=== PATIENT | female | born 1955 | race Caucasian/White ===

== ENCOUNTER 2021-08-14 23:57 | Inpatient (IN) | payer MEDICAID ==
[~2021-08-14] VITALS: Ht 167.6 cm; Wt 72.7 kg
[2021-08-15] VITALS (21 sets, daily range): BP systolic 83–120; BP diastolic 40–94
--- NOTE | 2021-08-15 01:42 | NUR ---
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
[2021-08-15] MEDS ORDERED: HYDROmorphone 1 mg/ml syringe IV ONE (01:55)
[2021-08-15] MEDS ORDERED: magnesium hydroxide 30ml (MOM) UD suspension PO PRN (02:10)
[2021-08-15] MEDS ORDERED: magnesium 2GM in 50ml NS 50 ML IV PRN (02:10)
[2021-08-15] MEDS ORDERED: magnesium Cl slow-release 64mg tablet PO PRN (02:10)
[2021-08-15] MEDS ORDERED: potassium Cl 20 mEq SR tablet PO PRN ×2 (02:10)
[2021-08-15] MEDS ORDERED: ondansetron/PF 4mg/2ml inj IV PRN ×2 (02:10→10:30)
[2021-08-15] MEDS ORDERED: potassium CL 10mEq/100ml bag 100 ML IV PRN (02:10)
[2021-08-15] MEDS ORDERED: magnesium 4gm in 100ml NS 100 ML IV PRN (02:10)
[2021-08-15] MEDS ORDERED: acetaminophen 325mg tablet PO PRN (02:10)
--- NOTE | 2021-08-15 02:30 | NUR ---
Dr Dawn at bs
[2021-08-15 02:32] LABS: POTASSIUM 3.7 MMOL/L (3.5-5.1)
[2021-08-15] MEDS: normal saline 1000ml 1,000 ML IV SCH ×4 (02:38→22:48)
--- NOTE | 2021-08-15 02:45 | NUR ---
pt medicated per mar
--- NOTE | 2021-08-15 03:00 | NUR ---
18 F duenas cath inserted with immediate return of 250 cc cloudy, marla urine, pt simon proc well.
--- NOTE | 2021-08-15 03:23 | NUR ---
Report called to RN on surgical floor.
--- NOTE | 2021-08-15 03:24 | NUR ---
pt going to rm # [id number].
[2021-08-15] MEDS: HYDROmorphone inj. 0.5 MG/0.5 ML DISP.SYRIN IV PRN ×6 (03:48→22:46)
--- NOTE | 2021-08-15 04:25 | NUR ---
RECEIVED PT FROM ER AAO TIMES 4 COMPLANING OF LEFT LOWER EXTREMITY PAIN. PT IS ADMITTED FOR LEFT FEMORAL NECK FRACTURE. VITAL SIGNS STABLE. PAIN MED ADMINISTERED WITH GOOD EFEECT,
--- NOTE | 2021-08-15 06:25 | NUR ---
Problems reprioritized. Patient report given, questions answered & plan of care reviewed with JEFFREY URBANO.
[2021-08-15] MEDS: docusate sod 100mg capsule PO SCH ×2 (08:00→19:20)
[2021-08-15] MEDS ORDERED: FAMOTIDINE IV SCH (08:00)
[2021-08-15] MEDS: K and/or MAG REPLACEMENT MC SCH ×2 (08:00→19:12)
[2021-08-15] MEDS ORDERED: NORMAL SALINE IV SCH (08:00)
[2021-08-15 08:40] LABS: BASOPHILS % (AUTO) 0.3 % (0-1); EOSINOPHILS % (AUTO) 0.5 % (0-6); HEMATOCRIT 31.4 % (35.0-45.0); HEMOGLOBIN 10.7 g/dl (12.0-16.0); LYMPHOCYTES # (AUTO) 0.5 X10'3 (1.1-4.8); LYMPHOCYTES % (AUTO) 8.8 % (21-51); MEAN CORPUSCULAR HEMOGLOBIN 30.4 PG (27.0-31.0); MEAN CORPUSCULAR VOLUME 89.2 FL (78-98); MEAN PLATELET VOLUME 6.5 FL (7.4-10.4); MONOCYTES # (AUTO) 0.7 X10'3 (0-0.9); MONOCYTES % (AUTO) 13.1 % (2-12); NEUTROPHILS # (AUTO) 4.3 X10'3 (1.8-7.7); NEUTROPHILS % (AUTO) 77.3 % (42-75); PLATELET COUNT 205 X10'3 (140-440); RED BLOOD COUNT 3.51 X10'6 (4.20-5.60); RED CELL DISTRIBUTION WIDTH 14.1 % (11.5-14.5); WHITE BLOOD COUNT 5.6 X10'3 (4.5-11.0)
[2021-08-15 08:50] LABS: APTT 26 SECONDS (22-32)
[2021-08-15 10:01] LABS: ALANINE AMINOTRANSFERASE 18 U/L (12-78); ALBUMIN 2.7 G/DL (3.4-5.0); ALBUMIN/GLOBULIN RATIO 0.7 (1.1-1.5); ALKALINE PHOSPHATASE 97 IU/L (46-116); ANION GAP 3 (8-16); ASPARTATE AMINO TRANSFERASE 30 U/L (10-37); BILIRUBIN,TOTAL 0.4 MG/DL (0.1-1.0); BLOOD UREA NITROGEN 22 MG/DL (7-18); BUN/CREATININE RATIO 46.8 (6.6-38.0); CALCIUM 8.2 MG/DL (8.5-10.1); CHLORIDE 109 MMOL/L (99-107); CREATININE 0.47 MG/DL (0.40-0.90); GLUCOSE 99 MG/DL (70-104); POTASSIUM 3.6 MMOL/L (3.5-5.1); SODIUM 143 MMOL/L (135-145); TOTAL CARBON DIOXIDE 30.8 MMOL/L (24-32); TOTAL PROTEIN 6.5 G/DL (6.4-8.2); eGFR > 90 ML/MIN
[2021-08-15] MEDS: famotidine/PF 10 mg/ml inj IV SCH ×2 (10:10→20:29)
--- NOTE | 2021-08-15 10:20 | NUR ---
PAGER ID: [phone] MESSAGE: [phone]. Can we get other pain med orders, patient only has dilaudid. Lena URBANO [phone]
[2021-08-15] MEDS ORDERED: morphine 4 MG/ML inj SYRINge IV PRN (10:30)
[2021-08-15] MEDS ORDERED: fentaNYL/PF 50MCG/1 ML 2ML syringe IV PRN ×2 (10:30)
[2021-08-15] MEDS ORDERED: ringers solution, lacted 1,000 ML IV SCH (10:30)
[2021-08-15] MEDS ORDERED: hydrALAZINE 20mg/ml inj. IV PRN (10:30)
[2021-08-15] MEDS ORDERED: morphine 2 MG/ML inj. syringe IV PRN (10:30)
[2021-08-15] MEDS ORDERED: labetalol 20mg/4ml (5mg/ml) syringe IV PRN (10:30)
[2021-08-15] MEDS: HYDROcodone/acetaminophen 5mg/325mg tablet PO PRN ×2 (10:46→17:47)
[2021-08-15] MEDS ORDERED: NICO-687 TOP (11:05)
[2021-08-15] MEDS ORDERED: DEXA4TAB79 PO (11:05)
[2021-08-15] MEDS ORDERED: PANT40TA54 PO (11:05)
[2021-08-15] MEDS ORDERED: MIDAZolam 1 MG/ML 5ML VIAL ONE (13:15)
[2021-08-15] MEDS ORDERED: FENTANYL CITRATE/PF 50 MCG/1 ML VIAL ONE (13:15)
[2021-08-15] MEDS ORDERED: tetracaine 1% (10mg/ml) pres. free inj. ONE (13:21)
[2021-08-15] MEDS ORDERED: ceFAZolin 1000mg inj ONE ×2 (13:29)
[2021-08-15] MEDS ORDERED: ePHEDrine 50MG/ML INJ. ONE (13:29)
[2021-08-15] MEDS ORDERED: ROPIVAcaine 0.5% (5mg/ml) 30ml vial ONE (14:16)
[2021-08-15] MEDS ORDERED: cloNIDine hcl/PF 100mcg/ml inj ONE (14:16)
[2021-08-15] MEDS ORDERED: ketorolac trometh. 30mg/ml inj. ONE (14:16)
[2021-08-15] MEDS ORDERED: epiNEPHrine 1 mg/ml inj ONE (14:16)
[2021-08-15] MEDS ORDERED: vancomycin 1,000mg inj ONE (14:17)
--- NOTE | 2021-08-15 14:54 | NUR ---
Received from OR via , accompanied by Anesthesiologist DR MELGAR and report given by Anesthesiolgist. AWAKENS TO STIIMULATION. VITALS STABLE. DRESSING DI. RADHA PAIN. SENSATION JUST ABOVE THE HIPS. GREEN WITH CLEAR URINE.
--- NOTE | 2021-08-15 16:04 | NUR ---
Report called to receiving nurse. Transferred via [facility] . Special Issues communicated to receiving nurse.AWAKE AND ORIENTED. VITALS STABLE. DRESSING DI. RADHA PAIN. TO SURGICAL RM 353 AT THIS TIME.
--- NOTE | 2021-08-15 17:38 | NUR ---
Patient complains of pain. Ice packs placed on left hip, prn pain medication given.
--- NOTE | 2021-08-15 18:28 | NUR ---
Patient in room [facility]. I have received report from Lena URBANO and had the opportunity to ask questions and assume patient care.
--- NOTE | 2021-08-15 18:43 | NUR ---
Problems reprioritized. Patient report given, questions answered & plan of care reviewed with Katelynn URBANO.
[2021-08-15] MEDS: enoxaparin 40mg/0.4ml syringe SUBCUT SCH (19:22)
[2021-08-16] VITALS (7 sets, daily range): BP systolic 90–103; BP diastolic 36–54
[2021-08-16] MEDS: HYDROmorphone inj. 0.5 MG/0.5 ML DISP.SYRIN IV PRN ×2 (01:54→05:29)
[2021-08-16] MEDS ORDERED: ringers solution, lacted 1,000 ML IV SCH (05:00)
--- NOTE | 2021-08-16 06:15 | NUR ---
Problems reprioritized. Patient report given, questions answered & plan of care reviewed with Shannan URBANO.
[2021-08-16 06:22] LABS: BASOPHILS % (AUTO) 0.3 % (0-1); EOSINOPHILS % (AUTO) 0.8 % (0-6); HEMATOCRIT 25.8 % (35.0-45.0); HEMOGLOBIN 8.8 g/dl (12.0-16.0); LYMPHOCYTES # (AUTO) 0.5 X10'3 (1.1-4.8); LYMPHOCYTES % (AUTO) 8.9 % (21-51); MEAN CORPUSCULAR HEMOGLOBIN 30.2 PG (27.0-31.0); MEAN CORPUSCULAR HGB CONC 34.1 g/dL (33.0-36.5); MEAN CORPUSCULAR VOLUME 88.7 FL (78-98); MEAN PLATELET VOLUME 6.9 FL (7.4-10.4); MONOCYTES # (AUTO) 0.6 X10'3 (0-0.9); MONOCYTES % (AUTO) 11.6 % (2-12); NEUTROPHILS # (AUTO) 4.3 X10'3 (1.8-7.7); NEUTROPHILS % (AUTO) 78.4 % (42-75); PLATELET COUNT 164 X10'3 (140-440); RED BLOOD COUNT 2.91 X10'6 (4.20-5.60); RED CELL DISTRIBUTION WIDTH 13.7 % (11.5-14.5); WHITE BLOOD COUNT 5.5 X10'3 (4.5-11.0)
[2021-08-16 06:37] LABS: ALANINE AMINOTRANSFERASE 18 U/L (12-78); ALBUMIN 2.2 G/DL (3.4-5.0); ALBUMIN/GLOBULIN RATIO 0.7 (1.1-1.5); ALKALINE PHOSPHATASE 83 IU/L (46-116); ANION GAP 11 (8-16); ASPARTATE AMINO TRANSFERASE 29 U/L (10-37); BILIRUBIN,TOTAL 0.4 MG/DL (0.1-1.0); BLOOD UREA NITROGEN 16 MG/DL (7-18); BUN/CREATININE RATIO 28.6 (6.6-38.0); CALCIUM 7.9 MG/DL (8.5-10.1); CHLORIDE 106 MMOL/L (99-107); CREATININE 0.56 MG/DL (0.40-0.90); GLUCOSE 99 MG/DL (70-104); POTASSIUM 3.6 MMOL/L (3.5-5.1); SODIUM 143 MMOL/L (135-145); TOTAL CARBON DIOXIDE 26.5 MMOL/L (24-32); TOTAL PROTEIN 5.5 G/DL (6.4-8.2); eGFR > 90 ML/MIN
[2021-08-16] MEDS: docusate sod 100mg capsule PO SCH ×2 (08:00→19:54)
[2021-08-16] MEDS ORDERED: heparin, porcine 5000 units/ml vial SQ SCH (08:00)
[2021-08-16] MEDS: famotidine/PF 10 mg/ml inj IV SCH (08:00)
[2021-08-16] MEDS: K and/or MAG REPLACEMENT MC SCH ×2 (08:00→18:45)
[2021-08-16] MEDS: ceFAZolin 2gm in dextrose, iso 50 ML IV SCH ×2 (08:04→15:19)
[2021-08-16] MEDS: normal saline 1000ml 1,000 ML IV SCH (08:06)
[2021-08-16] MEDS ORDERED: HYDROmorphone inj. 0.5 MG/0.5 ML DISP.SYRIN IV PRN (08:40)
[2021-08-16] MEDS ORDERED: HYDROmorphone 1 mg/ml syringe IV ONE (08:40)
[2021-08-16] MEDS ORDERED: cefazolin/dext.iso 2gm/100ml 100 ML IV SCH (16:00)
--- NOTE | 2021-08-16 18:26 | NUR ---
Problems reprioritized. Patient report given, questions answered & plan of care reviewed with SUNDEEP Pace.
--- NOTE | 2021-08-16 18:39 | NUR ---
Patient in room [facility]. I have received report from Shannan URBANO and had the opportunity to ask questions and assume patient care.
[2021-08-16] MEDS: famotidine 20mg tablet PO SCH (19:53)
[2021-08-16] MEDS: enoxaparin 40mg/0.4ml syringe SUBCUT SCH (19:58)
[2021-08-16] MEDS: HYDROcodone/acetaminophen 5mg/325mg tablet PO PRN (21:58)
[2021-08-17] VITALS: BP 91/45
[2021-08-17] MEDS: HYDROcodone/acetaminophen 5mg/325mg tablet PO PRN ×4 (05:10→20:07)
--- NOTE | 2021-08-17 06:20 | NUR ---
Problems reprioritized. Patient report given, questions answered & plan of care reviewed with Inge URBANO.
--- NOTE | 2021-08-17 06:22 | NUR ---
Patient in room [facility]. I have received report from LARA URBANO and had the opportunity to ask questions and assume patient care.
[2021-08-17 06:40] LABS: BASOPHILS % (AUTO) 0.3 % (0-1); EOSINOPHILS % (AUTO) 0.8 % (0-6); HEMATOCRIT 26.1 % (35.0-45.0); HEMOGLOBIN 8.9 g/dl (12.0-16.0); LYMPHOCYTES # (AUTO) 0.5 X10'3 (1.1-4.8); LYMPHOCYTES % (AUTO) 7.9 % (21-51); MEAN CORPUSCULAR HEMOGLOBIN 30.2 PG (27.0-31.0); MEAN CORPUSCULAR HGB CONC 34.3 g/dL (33.0-36.5); MEAN PLATELET VOLUME 6.9 FL (7.4-10.4); MONOCYTES # (AUTO) 0.9 X10'3 (0-0.9); MONOCYTES % (AUTO) 14.9 % (2-12); NEUTROPHILS # (AUTO) 4.4 X10'3 (1.8-7.7); NEUTROPHILS % (AUTO) 76.1 % (42-75); PLATELET COUNT 165 X10'3 (140-440); RED BLOOD COUNT 2.96 X10'6 (4.20-5.60); RED CELL DISTRIBUTION WIDTH 13.8 % (11.5-14.5); WHITE BLOOD COUNT 5.8 X10'3 (4.5-11.0)
[2021-08-17 07:03] LABS: ALANINE AMINOTRANSFERASE 20 U/L (12-78); ALBUMIN/GLOBULIN RATIO 0.5 (1.1-1.5); ALKALINE PHOSPHATASE 105 IU/L (46-116); ANION GAP 11 (8-16); ASPARTATE AMINO TRANSFERASE 30 U/L (10-37); BILIRUBIN,TOTAL 0.5 MG/DL (0.1-1.0); BLOOD UREA NITROGEN 15 MG/DL (7-18); BUN/CREATININE RATIO 29.4 (6.6-38.0); CALCIUM 8.2 MG/DL (8.5-10.1); CHLORIDE 105 MMOL/L (99-107); CREATININE 0.51 MG/DL (0.40-0.90); GLUCOSE 104 MG/DL (70-104); POTASSIUM 3.6 MMOL/L (3.5-5.1); SODIUM 141 MMOL/L (135-145); TOTAL CARBON DIOXIDE 24.8 MMOL/L (24-32); TOTAL PROTEIN 5.9 G/DL (6.4-8.2); eGFR > 90 ML/MIN
[2021-08-17] MEDS: K and/or MAG REPLACEMENT MC SCH ×2 (08:00→19:35)
[2021-08-17 08:02] VITALS: BP_SYST 100; BP_SYST 103; BP_DIAS 35; BP_DIAS 40
[2021-08-17] MEDS: docusate sod 100mg capsule PO SCH ×2 (09:41→21:41)
[2021-08-17] MEDS: famotidine 20mg tablet PO SCH ×2 (09:41→20:06)
[2021-08-17] MEDS: normal saline 500ml IV soln 500 ML IV SCH ×2 (11:48→13:35)
[2021-08-17 12:00] VITALS: BP 92/56
--- NOTE | 2021-08-17 12:42 | NUR ---
patient up in chair assisted by PT. Seen by Verenice Bang PRODUCT DEVELOPMENT INTERN, bolused 500mls nacl. DRessing intact . will continue to monitor
[2021-08-17] MEDS ORDERED: nicotine 21mg patch - 24 hr TD ONE (13:25)
--- NOTE | 2021-08-17 18:12 | NUR ---
Problems reprioritized. Patient report given, questions answered & plan of care reviewed with Joana URBANO.
[2021-08-17 20:00] VITALS: BP 140/43
[2021-08-17] MEDS: dexamethasone 4mg tablet PO SCH (20:05)
[2021-08-17] MEDS: enoxaparin 40mg/0.4ml syringe SUBCUT SCH (20:08)
[2021-08-18] VITALS: BP 94/50
[2021-08-18] MEDS: HYDROcodone/acetaminophen 5mg/325mg tablet PO PRN ×3 (03:33→19:57)
--- NOTE | 2021-08-18 06:15 | NUR ---
Patient in room [facility]. I have received report from Joana URBANO traveler and had the opportunity to ask questions and assume patient care.
[2021-08-18 06:37] LABS: BASOPHILS % (AUTO) 0.1 % (0-1); EOSINOPHILS % (AUTO) 0.1 % (0-6); HEMATOCRIT 26.3 % (35.0-45.0); HEMOGLOBIN 8.9 g/dl (12.0-16.0); LYMPHOCYTES # (AUTO) 0.4 X10'3 (1.1-4.8); LYMPHOCYTES % (AUTO) 5.6 % (21-51); MEAN CORPUSCULAR HEMOGLOBIN 30.3 PG (27.0-31.0); MEAN CORPUSCULAR VOLUME 89.1 FL (78-98); MONOCYTES # (AUTO) 0.4 X10'3 (0-0.9); MONOCYTES % (AUTO) 5.9 % (2-12); NEUTROPHILS # (AUTO) 5.6 X10'3 (1.8-7.7); NEUTROPHILS % (AUTO) 88.3 % (42-75); PLATELET COUNT 183 X10'3 (140-440); RED BLOOD COUNT 2.95 X10'6 (4.20-5.60); RED CELL DISTRIBUTION WIDTH 13.8 % (11.5-14.5); WHITE BLOOD COUNT 6.3 X10'3 (4.5-11.0)
[2021-08-18 06:54] LABS: ALANINE AMINOTRANSFERASE 23 U/L (12-78); ALBUMIN/GLOBULIN RATIO 0.5 (1.1-1.5); ALKALINE PHOSPHATASE 118 IU/L (46-116); ANION GAP 12 (8-16); ASPARTATE AMINO TRANSFERASE 28 U/L (10-37); BILIRUBIN,TOTAL 0.3 MG/DL (0.1-1.0); BLOOD UREA NITROGEN 12 MG/DL (7-18); BUN/CREATININE RATIO 24.5 (6.6-38.0); CALCIUM 8.4 MG/DL (8.5-10.1); CHLORIDE 105 MMOL/L (99-107); CREATININE 0.49 MG/DL (0.40-0.90); GLUCOSE 142 MG/DL (70-104); POTASSIUM 4.1 MMOL/L (3.5-5.1); SODIUM 142 MMOL/L (135-145); TOTAL CARBON DIOXIDE 25.3 MMOL/L (24-32); TOTAL PROTEIN 6.2 G/DL (6.4-8.2); eGFR > 90 ML/MIN
[2021-08-18] MEDS: docusate sod 100mg capsule PO SCH ×2 (07:33→19:56)
[2021-08-18] MEDS: pantoprazole 40mg Tablet.DR PO SCH (07:33)
[2021-08-18] MEDS: dexamethasone 4mg tablet PO SCH ×2 (07:33→19:56)
[2021-08-18 08:00] VITALS: BP 100/51
[2021-08-18] MEDS: famotidine 20mg tablet PO SCH ×2 (08:00→19:56)
[2021-08-18] MEDS: nicotine 21mg patch - 24 hr TD SCH (08:00)
[2021-08-18] MEDS: K and/or MAG REPLACEMENT MC SCH ×2 (08:00→19:44)
[2021-08-18 12:00] VITALS: BP 96/43
--- NOTE | 2021-08-18 18:26 | NUR ---
Problems reprioritized. Patient report given, questions answered & plan of care reviewed with mikel URBANO traveler.
[2021-08-18] MEDS: enoxaparin 40mg/0.4ml syringe SUBCUT SCH (19:58)
[2021-08-18 20:00] VITALS: BP 103/42
[2021-08-19] VITALS: BP 103/50
[2021-08-19] MEDS: HYDROcodone/acetaminophen 5mg/325mg tablet PO PRN (05:48)
[2021-08-19 06:52] LABS: BASOPHILS % (AUTO) 0 % (0-1); EOSINOPHILS % (AUTO) 0.1 % (0-6); HEMATOCRIT 25.6 % (35.0-45.0); HEMOGLOBIN 8.8 g/dl (12.0-16.0); LYMPHOCYTES # (AUTO) 0.4 X10'3 (1.1-4.8); LYMPHOCYTES % (AUTO) 6.1 % (21-51); MEAN CORPUSCULAR HEMOGLOBIN 30.4 PG (27.0-31.0); MEAN CORPUSCULAR HGB CONC 34.3 g/dL (33.0-36.5); MEAN CORPUSCULAR VOLUME 88.5 FL (78-98); MEAN PLATELET VOLUME 6.9 FL (7.4-10.4); MONOCYTES # (AUTO) 0.5 X10'3 (0-0.9); MONOCYTES % (AUTO) 7.2 % (2-12); NEUTROPHILS # (AUTO) 5.7 X10'3 (1.8-7.7); NEUTROPHILS % (AUTO) 86.6 % (42-75); PLATELET COUNT 226 X10'3 (140-440); RED BLOOD COUNT 2.89 X10'6 (4.20-5.60); RED CELL DISTRIBUTION WIDTH 13.8 % (11.5-14.5); WHITE BLOOD COUNT 6.6 X10'3 (4.5-11.0)
[2021-08-19 07:00] VITALS: BP 97/49
[2021-08-19 07:10] LABS: ALANINE AMINOTRANSFERASE 22 U/L (12-78); ALBUMIN 2.1 G/DL (3.4-5.0); ALBUMIN/GLOBULIN RATIO 0.5 (1.1-1.5); ALKALINE PHOSPHATASE 117 IU/L (46-116); ANION GAP 6 (8-16); ASPARTATE AMINO TRANSFERASE 22 U/L (10-37); BILIRUBIN,TOTAL 0.3 MG/DL (0.1-1.0); BLOOD UREA NITROGEN 17 MG/DL (7-18); BUN/CREATININE RATIO 35.4 (6.6-38.0); CALCIUM 8.4 MG/DL (8.5-10.1); CHLORIDE 107 MMOL/L (99-107); CREATININE 0.48 MG/DL (0.40-0.90); GLUCOSE 129 MG/DL (70-104); POTASSIUM 4.4 MMOL/L (3.5-5.1); SODIUM 140 MMOL/L (135-145); TOTAL CARBON DIOXIDE 26.7 MMOL/L (24-32); TOTAL PROTEIN 6.6 G/DL (6.4-8.2); eGFR > 90 ML/MIN
[2021-08-19] MEDS: nicotine 21mg patch - 24 hr TD SCH (08:00)
[2021-08-19] MEDS: K and/or MAG REPLACEMENT MC SCH (08:00)
--- NOTE | 2021-08-19 08:22 | NUR ---
Spoke to the pharmacist on the phone about this patient medication. Patient has Famotidine and Protonix both scheduled today. I told the pharmacist my concern of having duplicate therapy. Pharmacist agreed with me. He instructed me to give Protonix and not the Famotidine.
[2021-08-19] MEDS: docusate sod 100mg capsule PO SCH (08:28)
[2021-08-19] MEDS: pantoprazole 40mg Tablet.DR PO SCH (08:28)
[2021-08-19] MEDS: dexamethasone 4mg tablet PO SCH (08:28)
[2021-08-19 11:00] VITALS: BP 98/43
--- NOTE | 2021-08-19 15:38 | NUR ---
Paged Dr. Howe PAGER ID: [phone] MESSAGE: Surgical Samina URBANO ext [phone] RE: Gregoria Ahumada. Patient leaving today going to [facility]. Do you want her to go with duenas catheter or d/c it?
--- NOTE | 2021-08-19 15:54 | NUR ---
Per Dr. Howe, patient can leave today with a duenas catheter
--- NOTE | 2021-08-19 17:53 | NUR ---
[facility] Anticipated pick up man time tonight at 18:30. Peripheral IV catheter removed, tip intact.
== END 2021-08-19 20:00 | DRG 323 ==
LOC: ER 08-15 → ED HOLD 08-15 02:09 → SUR 3N 08-15 03:50
PROVIDERS: ADMIT Internal Medicine; ATTEND Internal Medicine
PROC: 0SRB06Z Replacement of Left Hip Joint with Oxidized Zirconium on Polyethylene Synthetic Substitute, Open Approach (ICD-10-PCS; principal; 2021-08-15 13:00)
DX: M84.452A Pathological fracture, left femur, initial encounter for fracture (principal); C79.51 Secondary malignant neoplasm of bone; E43 Unspecified severe protein-calorie malnutrition; C34.90 Malignant neoplasm of unspecified part of unspecified bronchus or lung; D62 Acute posthemorrhagic anemia; I95.9 Hypotension, unspecified; C79.31 Secondary malignant neoplasm of brain; D3A.8 Other benign neuroendocrine tumors; Z20.822 Contact with and (suspected) exposure to COVID-19; Z83.3 Family history of diabetes mellitus; Z88.0 Allergy status to penicillin; Z88.1 Allergy status to other antibiotic agents; Z88.8 Allergy status to other drugs, medicaments and biological substances; Z68.25 Body mass index [BMI] 25.0-25.9, adult
CPT/HCPCS: 36415; 71045; 72170; 80053; 82948; 83735; 83880; 84132; 85025; 85610; 85730; 87081; 87635; 93005; 97110; 97116; 97161; 97530; 99285; A7000; A9272; C1776; G0378; J0171; J0690; J0735; J1170; J1644; J1650; J1885; J2250; J2795; J3010; J3370; J3490; J7030; J7040; J7120